=== PATIENT | female | born 1970 | race Caucasian/White ===

== ENCOUNTER 2019-01-09 13:48 | Emergency (ER) | payer SELFPAY ==
[~2019-01-09] VITALS: Ht 167.7 cm; Wt 90.9 kg
[2019-01-09] MEDS ORDERED: KETOROLAC 60 MG/2 ML VIAL IM STA (14:08)
--- NOTE | 2019-01-09 14:43 | Diagnostic Imaging Report ---
PATIENT HISTORY: Injury of the left foot. Pain in the fifth metatarsal and first metatarsal. TECHNIQUE: Three views of the left foot. COMPARISON: None. FINDINGS: No acute fracture or dislocation is seen in the left foot. Alignment appears normal. Joint spaces are preserved. There is a bipartite medial hallux sesamoid. A prominent os trigonum is seen. There is a moderate-sized plantar calcaneal enthesophyte. IMPRESSION: No acute osseous abnormality is seen in the left foot. Dictated by: Dictated on workstation # [id number]
--- NOTE | 2019-01-09 15:07 | ED Lower Extremity ---
General Chief Complaint: Lower Extremity Stated Complaint: L FOOT INJ Nursing Triage Note: PT TO TRIAGE BY WHEELCHAIR WITH COMPLAINT OF LEFT FOOT PAIN. STATES SHE FELL AROUND 10AM AND PAIN HAS BEEN INCREASING. Source: patient Exam Limitations: no limitations History of Present Illness Date Seen by Provider: Jan 09, 2019 Time Seen by Provider: 13:58 Initial Comments 48 yo female patient presents with c/o left foot pain after rolling the ankle at 1000 today. Patient reports pain has progressively gotten worse since this AM. Patient denies hitting her head, LOC, confusion, neck pain, or back pain. Denies taking tylenol or motrin for pain today. Onset: this morning Pain/Injury Location: left foot Method of Injury: fell, twisted Modifying Factors: Improves With Immobilization; Worse With Movement Allergies and Home Medications Allergies Coded Allergies: No Known Drug Allergies (Unverified , 01/09/19) Patient Home Medication List Home Medication List Reviewed: Yes Review of Systems Constitutional: no symptoms reported Respiratory: no symptoms reported Cardiovascular: no symptoms reported Musculoskeletal: see HPI; No back pain; joint pain, joint swelling; No neck pain Skin: no symptoms reported Psychiatric/Neurological: Denies Headache, Denies Numbness, Denies Paresthesia, Denies Tingling, Denies Weakness All Other Systems Reviewed Negative Unless Noted: Yes (Negative excepted noted.) Past Ipsbagd-Bcwwpo-Abucnc Hx Past Med/Social Hx: Reviewed Nursing Past Med/Soc Hx Patient Social History Recent Foreign Travel: No Contact w/Someone Who Travel: No Past Medical History Surgeries: Yes Hysterectomy, Orthopedic Respiratory: No Cardiac: No Neurological: No Genitourinary: No Gastrointestinal: No Musculoskeletal: No Family Medical History Reviewed Nursing Family Hx No Pertinent Family Hx Physical Exam Vital Signs Vital Signs - First Documented 01/09/19 13:58 Temp 37.0 Pulse 94 Resp 20 B/P (MAP) 140/99 (113) Pulse Ox 97 O2 Delivery Room Air Capillary Refill : Height, Weight, BMI Height: '" Weight: lbs. oz. kg; BMI Method: General Appearance: WD/WN, no apparent distress Cardiovascular: normal peripheral pulses, regular rate, rhythm, no edema, no murmur Respiratory: lungs clear, normal breath sounds, no respiratory distress, no accessory muscle use Hips: bilateral hip non-tender, bilateral hip normal inspection, bilateral hip normal range of motion, bilateral hip no evidence of injury Legs: bilateral leg non-tender, bilateral leg normal inspection, bilateral leg normal range of motion, bilateral leg no evidence of injury Knees: bilateral knee non-tender, bilateral knee normal inspection, bilateral knee normal range of motion, bilateral knee no evidence of injury Ankles: bilateral ankle non-tender, bilateral ankle normal inspection, bilateral ankle normal range of motion, bilateral ankle no evidence of injury Feet: right foot non-tender, right foot normal inspection, right foot normal range of motion, right foot no evidence of injury; left foot bone tenderness (distal dorsal foot tenderness), left foot limited range of motion, left foot pain, left foot soft tissue tenderness, left foot swelling (minimal swelling noted to the dorsal mid foot) Neurologic/Tendon: normal sensation, normal motor functions, normal tendon functions, responds to pain, no evidence tendon injury Neurologic/Psychiatric: no motor/sensory deficits, alert, normal mood/affect, oriented x 3 Skin: normal color, warm/dry; No cyanosis, No cool, No diaphoresis, No ecchymosis Progress/Results/Core Measures Results/Orders My Orders Orders - ANDREAS HARDY Foot, Left, 3 Views (01/09/19 14:07) Ketorolac Injection (Toradol Injection) (01/09/19 14:08) Vital Signs/I&O 01/09/19 01/09/19 13:58 15:50 Temp 37.0 37.0 Pulse 94 94 Resp 20 20 B/P (MAP) 140/99 (113) 140/99 (113) Pulse Ox 97 97 O2 Delivery Room Air Diagnostic Imaging Diagonstic Imaging: Xray Plain Films/CT/US/NM/MRI: other (foot) Comments Date of Exam:01/09/19 FOOT, LEFT, 3 VIEWS PATIENT HISTORY: Injury of the left foot. Pain in the fifth metatarsal and first metatarsal. TECHNIQUE: Three views of the left foot. COMPARISON: None. FINDINGS: No acute fracture or dislocation is seen in the left foot. Alignment appears normal. Joint spaces are preserved. There is a bipartite medial hallux sesamoid. A prominent os trigonum is seen. There is a moderate-sized plantar calcaneal enthesophyte. IMPRESSION: No acute osseous abnormality is seen in the left foot. Dictated on workstation # [id number] Reviewed: Reviewed by Me (radiology report reviewed by me) Departure Communication (Admissions) Patient seen and evaluated. Plain Radiographs obtained of the left foot. Diagnostic findings discussed with the patient. plan for dsch to home. pt given a written Rx for crutches. Impression Primary Impression: Sprain or strain of foot Disposition: HOME, SELF-CARE Condition: Improved Departure-Patient Inst. Decision time for Depature: 15:06 Referrals: NO,LOCAL PHYSICIAN (PCP) Primary Care Physician Patient Instructions: Sprain (DC) Add. Discharge Instructions: All discharge instructions reviewed with patient and/or family. Voiced understanding. Tylenol extra strength [id number] as directed for pain. Ibuprofen 800 mg by mouth every 8 hours as needed for pain. Elevate the foot on pillows. Ice pack for 20 minute intervals as needed. Omi wrap as instructed. Activity as tolerated. Follow-up with your family practitioner for recheck if no improvement in symptoms in 7-10 days. Return to the emergency department for worsened symptoms or any other concerns. Work/School Note: Local [employer] Staff Listing ANDREAS HARDY Jan 09, 2019 15:07
[2019-01-09 15:50] VITALS: BP 140/99
== END 2019-01-09 15:50 | disposition home or self-care (01) ==
LOC: ER 13:51
DX: S93.602A Unspecified sprain of left foot, initial encounter (principal); Z90.710 Acquired absence of both cervix and uterus; X50.1XXA Overexertion from prolonged static or awkward postures, initial encounter; W19.XXXA Unspecified fall, initial encounter
CPT/HCPCS: 73630; 96372